=== PATIENT | female | born 1955 | race Caucasian/White ===

== ENCOUNTER 2017-05-02 02:49 | Emergency (ER) | payer MEDICARE ==
[~2017-05-02] VITALS: Ht 165.1 cm; Wt 94.9 kg
[~2017-05-02 02:49] MED LIST: ACTIVELLA 0.5-1 EACH; ACTIVELLA1 TAB PO; ASPIR 8181 M1 PO; FLONASE16 G1 NS; METOPROLOL SUCC25 MG PO; RANITIDINE HCL150 MG PO; SINGULAIR10 MG PO
[2017-05-02 03:46] LABS: BASOPHIL (%) 0.3 % (0-1); EOSINOPHIL (%) 0.1 % (0-5); HEMATOCRIT 45.7 % (36.0-46.0); IMMATURE GRANULOCYTE (%) 0.4 % (0.0-0.7); LYMPHOCYTE COUNT 1.1 K/uL (1.0-2.8); MCH 28.8 PG (29.0-34.0); MCHC 32.8 G/DL (30.0-36.0); MCV 87.9 FL (83-99); MONOCYTE COUNT 0.7 K/uL (0-0.8); NEUTROPHIL (%) 83.2 % (45-76); NEUTROPHIL COUNT 9.5 K/uL (1.8-6.4); PLATELET COUNT 249 K/uL (156-360); RBC DIS.WIDTH-CV 12.8 % (11.8-14.6); RBC DIS.WIDTH-SD 40.9 % (39-53); WHITE BLOOD COUNT 11.4 K/uL (4.1-10.2)
[2017-05-02 03:57] LABS: ALBUMIN 4.5 g/dL (3.2-4.8); CHLORIDE 105 mEq/L (99-109); POTASSIUM 3.9 mEq/L (3.7-5.4); SODIUM 140 mEq/L (136-147)
[2017-05-02 03:59] LABS: GLUCOSE 185 mg/dL (70-99)
[2017-05-02 04:00] LABS: TOTAL PROTEIN 7.3 g/dL (6.4-8.3)
[2017-05-02 04:01] LABS: TOTAL BILIRUBIN 0.6 mg/dL (0.0-1.0)
[2017-05-02 04:03] LABS: ALKALINE PHOSPHATASE 83 IU/L (3-129); CREATININE 0.8 mg/dL (0.6-1.3); GFR ESTIMATE (CALCULATED) > 59 mL/min/
[2017-05-02 04:04] LABS: UREA NITROGEN (BUN) 18 mg/dL (9-23)
[2017-05-02 04:05] LABS: AST (GOT) 17 IU/L (2-34); DIRECT BILIRUBIN 0.2 mg/dL (0.0-0.3)
[2017-05-02 04:06] LABS: ALT (GPT) 27 IU/L (3-49); LIPASE 23 U/L (1.0-51.0)
[2017-05-02] MEDS ORDERED: ZOFRAN ODT4 MG PO (04:44)
[2017-05-02] MEDS ORDERED: BENTYL20 MG PO (04:44)
[2017-05-02 05:02] VITALS: BP 156/79
[2017-05-02] MEDS ORDERED: DAILY VALUE1 EACH PO (16:03)
[2017-05-02] MEDS ORDERED: LIPITOR20 MG PO (16:03)
[2017-05-02] MEDS ORDERED: CALCIUM 500 +1 EACH PO (16:03)
[2017-05-02] MEDS ORDERED: TYLENOL EXTRA500 MG PO (16:03)
[2017-05-02] MEDS ORDERED: RESTASIS MULTI5.5 ML BOTH EYES (16:04)
[2017-05-02] MEDS ORDERED: ESTRING1 EACH VG (16:08)
[2017-05-02] MEDS ORDERED: PROTONIX40 MG PO (16:09)
== END 2017-05-02 05:03 | disposition home or self-care (01) ==
LOC: EME 02:49
PROVIDERS: Emergency Medicine
DX: K80.50 Calculus of bile duct without cholangitis or cholecystitis without obstruction (principal); I10 Essential (primary) hypertension; K21.9 Gastro-esophageal reflux disease without esophagitis
CPT/HCPCS: 76705; 80048; 80076; 81003; 83605; 83690; 85025; 93005; 99281; 99284; J0500; J2405; J7030

== ENCOUNTER 2017-05-02 13:06 | Inpatient (IN) | payer MEDICARE ==
[~2017-05-02] VITALS: Ht 165.1 cm; Wt 92.7 kg
[~2017-05-02 13:06] MED LIST changes: +BENTYL20 MG PO; +ZOFRAN ODT4 MG PO
[2017-05-02 14:50] LABS: HEMATOCRIT 47.5 % (36.0-46.0); HEMOGLOBIN 15.8 G/DL (11.9-15.5); MCH 29.4 PG (29.0-34.0); MCHC 33.3 G/DL (30.0-36.0); MCV 88.3 FL (83-99); PLATELET COUNT 227 K/uL (156-360); RBC DIS.WIDTH-CV 13.1 % (11.8-14.6); RBC DIS.WIDTH-SD 42.4 % (39-53); RED BLOOD COUNT 5.38 M/uL (3.80-5.20); WHITE BLOOD COUNT 22.9 K/uL (4.1-10.2)
[2017-05-02 14:58] LABS: ALBUMIN 4.5 g/dL (3.2-4.8); CHLORIDE 106 mEq/L (99-109); SODIUM 140 mEq/L (136-147)
[2017-05-02 15:00] LABS: GLUCOSE 145 mg/dL (70-99); POTASSIUM 4.8 mEq/L (3.7-5.4); TOTAL PROTEIN 7.4 g/dL (6.4-8.3)
[2017-05-02 15:04] LABS: ALKALINE PHOSPHATASE 82 IU/L (3-129); CREATININE 0.7 mg/dL (0.6-1.3); GFR ESTIMATE (CALCULATED) > 59 mL/min/; TOTAL BILIRUBIN 1.2 mg/dL (0.0-1.0)
[2017-05-02 15:05] LABS: UREA NITROGEN (BUN) 9 mg/dL (9-23)
[2017-05-02 15:06] LABS: AST (GOT) 25 IU/L (2-34)
[2017-05-02 15:07] LABS: ALT (GPT) 35 IU/L (3-49); LIPASE 139 U/L (1.0-51.0)
[2017-05-02] MEDS ORDERED: LIPITOR20 MG PO (16:03)
[2017-05-02] MEDS ORDERED: CALCIUM 500 +1 EACH PO (16:03)
[2017-05-02] MEDS ORDERED: TYLENOL EXTRA500 MG PO (16:03)
[2017-05-02] MEDS ORDERED: DAILY VALUE1 EACH PO (16:03)
[2017-05-02] MEDS ORDERED: RESTASIS MULTI5.5 ML BOTH EYES (16:04)
[2017-05-02] MEDS ORDERED: ESTRING1 EACH VG (16:08)
[2017-05-02] MEDS ORDERED: PROTONIX40 MG PO (16:09)
[2017-05-02 19:48] VITALS: BP 161/83
[2017-05-02 23:52] VITALS: BP 132/66
[2017-05-03 04:08] VITALS: BP 136/71
[2017-05-03 06:55] LABS: HEMATOCRIT 40.1 % (36.0-46.0); MCH 29.4 PG (29.0-34.0); MCHC 32.7 G/DL (30.0-36.0); MCV 89.9 FL (83-99); PLATELET COUNT 184 K/uL (156-360); RBC DIS.WIDTH-CV 13.4 % (11.8-14.6); RBC DIS.WIDTH-SD 44.2 % (39-53); RED BLOOD COUNT 4.46 M/uL (3.80-5.20)
[2017-05-03 06:59] LABS: HEMOGLOBIN 13.1 G/DL (11.9-15.5)
[2017-05-03 07:08] LABS: ALBUMIN 3.6 G/DL (3.2-4.8); ALKALINE PHOSPHATASE 62 IU/L (3-129); ALT (GPT) 39 IU/L (3-49); AST (GOT) 34 IU/L (2-34); CHLORIDE 109 MEQ/L (99-109); CREATININE 0.6 MG/DL (0.6-1.3); GFR ESTIMATE (CALCULATED) > 59 mL/min/; GLUCOSE 141 mg/dL (70-99); SODIUM 141 MEQ/L (136-147); TOTAL BILIRUBIN 1.2 MG/DL (0.0-1.0); TOTAL PROTEIN 5.4 G/DL (6.4-8.3); UREA NITROGEN (BUN) 10 mg/dL (9-23)
[2017-05-03 07:10] LABS: POTASSIUM 3.5 MEQ/L (3.7-5.4)
[2017-05-03 07:54] VITALS: BP 131/70
[2017-05-03 11:47] VITALS: BP 144/71
[2017-05-03 17:49] VITALS: BP 147/70
[2017-05-03 19:30] VITALS: BP 137/74
[2017-05-04] VITALS (7 sets, daily range): BP systolic 120–176; BP diastolic 58–88
[2017-05-04 06:09] LABS: HEMATOCRIT 38.9 % (36.0-46.0); HEMOGLOBIN 12.4 G/DL (11.9-15.5); MCH 28.8 PG (29.0-34.0); MCHC 31.9 G/DL (30.0-36.0); MCV 90.3 FL (83-99); PLATELET COUNT 183 K/uL (156-360); RBC DIS.WIDTH-CV 13.2 % (11.8-14.6); RED BLOOD COUNT 4.31 M/uL (3.80-5.20); WHITE BLOOD COUNT 12.5 K/uL (4.1-10.2)
[2017-05-04 06:33] LABS: ALBUMIN 3.5 G/DL (3.2-4.8); ALKALINE PHOSPHATASE 69 IU/L (3-129); ALT (GPT) 66 IU/L (3-49); AST (GOT) 41 IU/L (2-34); CHLORIDE 109 MEQ/L (99-109); CREATININE 0.6 MG/DL (0.6-1.3); DIRECT BILIRUBIN 0.2 mg/dL (0.0-0.3); GFR ESTIMATE (CALCULATED) > 59 mL/min/; GLUCOSE 125 mg/dL (70-99); POTASSIUM 3.7 MEQ/L (3.7-5.4); SODIUM 142 MEQ/L (136-147); TOTAL BILIRUBIN 0.9 MG/DL (0.0-1.0); TOTAL PROTEIN 6.1 G/DL (6.4-8.3); UREA NITROGEN (BUN) 8 mg/dL (9-23)
[2017-05-05 03:47] VITALS: BP 145/67
[2017-05-05 06:04] LABS: HEMATOCRIT 37.1 % (36.0-46.0); HEMOGLOBIN 11.9 G/DL (11.9-15.5); MCHC 32.1 G/DL (30.0-36.0); MCV 90.3 FL (83-99); PLATELET COUNT 189 K/uL (156-360); RBC DIS.WIDTH-CV 13.5 % (11.8-14.6); RBC DIS.WIDTH-SD 44.8 % (39-53); RED BLOOD COUNT 4.11 M/uL (3.80-5.20); WHITE BLOOD COUNT 7.5 K/uL (4.1-10.2)
[2017-05-05 06:28] LABS: CHLORIDE 110 MEQ/L (99-109); CREATININE 0.8 MG/DL (0.6-1.3); GFR ESTIMATE (CALCULATED) > 59 mL/min/; GLUCOSE 109 mg/dL (70-99); POTASSIUM 3.5 MEQ/L (3.7-5.4); SODIUM 144 MEQ/L (136-147); UREA NITROGEN (BUN) 13 mg/dL (9-23)
[2017-05-05 07:54] VITALS: BP 156/67
[2017-05-05] MEDS ORDERED: MYLICON,MYLANTA80 MG PO (10:23)
[2017-05-05] MEDS ORDERED: POLYETHYLENE GL17 GM PO (10:24)
== END 2017-05-05 12:02 | disposition home or self-care (01) | DRG 418 ==
LOC: EME 13:06 → EDOF 15:53 → 5SOUTH 15:53 → ENRESERV 15:56 → 5SOUTH 19:06
PROVIDERS: Hospitalist; Physician Assistant
DX: K85.10 Biliary acute pancreatitis without necrosis or infection (principal); R65.10 Systemic inflammatory response syndrome (SIRS) of non-infectious origin without acute organ dysfunction; K80.13 Calculus of gallbladder with acute and chronic cholecystitis with obstruction; E86.0 Dehydration; E87.6 Hypokalemia; K66.0 Peritoneal adhesions (postprocedural) (postinfection); I16.0 Hypertensive urgency; I10 Essential (primary) hypertension; E78.5 Hyperlipidemia, unspecified; K21.9 Gastro-esophageal reflux disease without esophagitis; E66.9 Obesity, unspecified; Z68.34 Body mass index [BMI] 34.0-34.9, adult; Z79.82 Long term (current) use of aspirin; Z87.11 Personal history of peptic ulcer disease; Z88.2 Allergy status to sulfonamides
CPT/HCPCS: 74181; 76705; 80048; 80053; 80076; 81003; 82948; 83605; 83690; 85025; 85027; 87040; 88304; 93005; 94799; 99281; 99284; 99285; C9113; J0131; J0330; J0500; J1170; J1650; J1885; J2405; J2543; J2710; J2765; J3010; J3480; J7030; J7042; J7050; J7120